=== PATIENT | female | born 1955 | race Caucasian/White ===

== ENCOUNTER 2023-03-10 20:34 | Emergency (ER) | payer OTHER, MEDICARE ==
[2023-03-10 22:54] LABS: Absolute Lymphocytes (CBC) 0.7 K/uL (0.7-4.9); Lymphocytes % 8.2 % (15.3-44.8); MCV 85.8 fL (80-100); Platelets 261 thou/uL (152-406); RBC Red Blood Cell Count 4.43 M/uL (3.86-4.86)
[2023-03-10 22:57] LABS: Protime INR 0.97
[2023-03-10 23:07] LABS: Albumin 3.8 g/dL (3.4-5.0); Bilirubin Total 0.3 mg/dL (0.2-1.0); Potassium 3.3 mEq/L (3.5-5.1)
[2023-03-11] MEDS ORDERED: NA CHLORIDE 0.9% 2,000 ML ONE (00:14)
[2023-03-11] MEDS ORDERED: PROMETHAZINE INJ 25 MG/ML AMP ONE (00:14)
[2023-03-11 01:52] LABS: Specific Gravity 1.005 (1.005-1.030); Urine Bacteria <20 /HPF (<20); Urine Bilirubin NEGATIVE (Negative); Urine Blood Negative (Negative); Urine Clarity Clear (Clear); Urine Color Colorless (Yellow); Urine Glucose NEGATIVE (Negative); Urine Protein NEGATIVE (Negative); Urine RBC <5 /HPF (None Seen); Urine Urobilinogen Normal (Normal); Urine pH 7.5 (5.0-7.0)
[2023-03-11 02:05] LABS: SARS-CoV-2 Antigen Rapid Res Positive (Negative)
--- NOTE | 2023-03-11 02:27 | ER ---
Nurse's Notes [facility] Name: Emily Villafana Age: 68 yrs Sex: Female : 1955 Arrival Date: 03/10/2023 Time: 20:34 Bed 8 Private MD: Diagnosis: SARS-associated coronavirus as the cause of diseases classified elsewhere;Weakness Presentation: 03/10 21:08 Chief complaint: Spouse and/or significant other states: she has diverticulitis , iw recently did a biopsy a few weeks ago , results aren't back , she pinched a nerve in her back last week, they put her on meds that make her nauseous, but today she started having fever, and vomiting and can't stand and weak. Coronavirus screen: Client presents with at least one sign or symptom that may indicate coronavirus-19. Ebola Screen: Patient negative for fever greater than or equal to 101.5 degrees Fahrenheit, and additional compatible Ebola Virus Disease symptoms Patient denies exposure to infectious person. Patient denies travel to an Ebola-affected area in the 21 days before illness onset. No symptoms or risks identified at this time. Risk Assessment: Do you want to hurt yourself or someone else? Patient reports no desire to harm self or others. Onset of symptoms was March 10, 2023. 21:08 Method Of Arrival: Wheelchair iw 21:08 Acuity: KODAK 3 iw 03/11 00:14 Initial Sepsis Screen: Does the patient meet any 2 criteria? No. Patient's initial kd3 sepsis screen is negative. Does the patient have a suspected source of infection? No. Patient's initial sepsis screen is negative. Historical: - Allergies: 03/10 21:09 Morphine; iw 21:09 Hydrocodone-Acetaminophen; iw 21:09 Zofran; iw 21:09 Band-Aid Plastic; iw - Home Meds: 21:09 Eliquis oral [Active]; pantoprazole oral [Active]; iw - PMHx: 21:09 MTHFR; Diverticulitis; Anemia; Hypertensive disorder; iw - PSHx: 21:09 hysterectomy; Cholecystectomy; Appendectomy; colon resection; Tonsillectomy; iw - Immunization history:: Adult Immunizations not up to date. - Social history:: Smoking status: Patient denies any tobacco usage or history of. Screenin/07 00:14 [facility] Fall Risk Assessment (Adult) History of falling in the last 3 months, kd3 including since admission No falls in past 3 months (0 pts) Confusion or Disorientation No (0 pts) Intoxicated or Sedated No (0 pts) Impaired Gait No (0 pts) Mobility Assist Device Used No (0 pt) Altered Elimination No (0 pt) Score/Fall Risk Level 0 - 2 = Low Risk Maintained a safe environment. Abuse screen: Denies threats or abuse. Denies injuries from another. Nutritional screening: No deficits noted. Tuberculosis screening: No symptoms or risk factors identified. Assessment: 00:14 General: Appears ill, Behavior is calm, cooperative. Pain: Complains of pain in low kd3 back area. Neuro: Level of Consciousness is awake, alert, obeys commands, Oriented to person, place, time, situation. 01:24 Reassessment: Pt gave verbal consent with son and at the bedside to keep son marifer (Osman Villafana) up to date on care. Osman Villafana phone number [phone]. Vital Signs: 03/10 21:08 BP 119 / 74; Pulse 88; Resp 16; Temp 100.2; Pulse Ox 95% on R/A; iw 23:18 Weight 71.21 kg; kd3 03/11 00:13 BP 119 / 70; Pulse 78; Resp 19; Pulse Ox 96% on R/A; kd3 01:48 BP 116 / 76; Pulse 84; Resp 18; Pulse Ox 95% on R/A; kd3 03:25 BP 115 / 71; Pulse 81; Resp 18; Pulse Ox 98% on R/A; kd3 ED Course: 03/10 20:36 Patient arrived in ED. am2 20:44 Jenna Easley PA-C is PHCP. sb4 20:44 Madhav Barboza MD is Attending Physician. sb4 21:09 Triage completed. iw 21:09 Arm band placed on. iw 21:19 Radiology exam delayed due to lab results not completed at this time. (BUN/Creatinine) eh4 IV insertion attempt and/or patient not having appropriate IV at this time. 22:09 Samara Winchester, RN is Primary Nurse. kd3 22:55 Ptt, Activated Sent. kd3 22:55 Protime (+inr) Sent. kd3 22:55 Lactate w/ 2H reflex if indic. Sent. kd3 22:55 CMP Sent. kd3 22:55 CBC with Diff Sent. kd3 22:55 Blood Culture Adult (2) Sent. kd3 23:38 CT Abd/Pelvis - IV Contrast Only In Process Unspecified. EDMS 03/11 00:14 Patient has correct armband on for positive identification. Provided Education on: . kd3 01:40 UAM Sent. bc6 01:40 Flu Sent. bc6 01:40 SARS RAPID Sent. bc6 03:25 No provider procedures requiring assistance completed. IV discontinued, intact, kd3 bleeding controlled, No redness/swelling at site. Pressure dressing applied. Administered Medications: 00:13 Drug: NS 0.9% IV (30 ml/kg) 30 ml/kg Route: IV; Rate: bolus; Site: left upper arm; kd3 03:24 Follow up: IV Status: Completed infusion; IV Intake: 1000ml kd3 00:13 Drug: Promethazine IVP 12.5 mg Route: IVP; Site: left upper arm; kd3 03:24 Follow up: Response: No adverse reaction; Nausea is decreased kd3 03:24 Drug: Decadron - Dexamethasone IVP 10 mg Route: IVP; Site: left upper arm; kd3 03:24 Follow up: Response: No adverse reaction kd3 Medication: 00:14 VIS not applicable for this client. kd3 Intake: 03:24 IV: 1000ml; Total: 1000ml. kd3 Outcome: 02:27 Discharge ordered by . sb4 03:25 Discharged to home via wheelchair, with family. kd3 03:25 Condition: stable 03:25 Discharge instructions given to patient, family, Instructed on discharge instructions, follow up and referral plans. Demonstrated understanding of instructions, medications. 03:26 Patient left the ED. kd3 Signatures: Dispatcher [employer] EDMS Sandrita Martinez RN RN iw Bryson, James RN RN [email or web address] Maria Ines Soliz Kyli, RN RN kd3 Gordon Mcclure 4 Jenna Easley PA-C PAChan sb4 Christine Shea bc6 Corrections: (The following items were deleted from the chart) 03/10 21:12 21:09 Home Meds: bandaids; billy cervantes
--- NOTE | 2023-03-11 02:27 | EDPHYS ---
Physician Documentation [facility] Name: Emily Villafana Age: 68 yrs Sex: Female : 1955 Arrival Date: 03/10/2023 Time: 20:34 Bed 8 Private MD: ED Physician Madhav Barboza HPI: 03/10 21:43 This 68 yrs old Female presents to ER via Wheelchair with complaints of Back Pain, sb4 Nausea/Vomiting, Decreased Appetite, dehydration. 21:54 68-year-old female with past medical history of diverticulitis and hypertension sb4 presents with complaints of weakness, vomiting, abdominal pain. Patient states that she strained her back recently and has been taking Tylenol 3 and Robaxin for the pain. The medication has caused her to vomit and now she can no longer hold anything down and is feeling incredibly weak. On top of that, she is having abdominal pain that she attributes to a diverticulitis flare. She is visiting from out of town. Historical: - Allergies: 21:09 Morphine; iw 21:09 Hydrocodone-Acetaminophen; iw 21:09 Zofran; iw 21:09 Band-Aid Plastic; iw - Home Meds: 21:09 Eliquis oral [Active]; pantoprazole oral [Active]; iw - PMHx: 21:09 MTHFR; Diverticulitis; Anemia; Hypertensive disorder; iw - PSHx: 21:09 hysterectomy; Cholecystectomy; Appendectomy; colon resection; Tonsillectomy; iw - Immunization history:: Adult Immunizations not up to date. - Social history:: Smoking status: Patient denies any tobacco usage or history of. ROS: 21:54 Eyes: Negative for injury, pain, redness, and discharge, ENT: Negative for injury, sb4 pain, and discharge, Cardiovascular: Negative for chest pain, palpitations, and edema, Respiratory: Negative for shortness of breath, cough, wheezing, and pleuritic chest pain, MS/Extremity: Negative for injury and deformity, Skin: Negative for injury, rash, and discoloration. 21:54 Constitutional: Positive for fever, poor PO intake. 21:54 Abdomen/GI: Positive for abdominal pain, nausea, vomiting, and diarrhea. 21:54 Back: Positive for pain at rest, pain with movement. 21:54 Neuro: Positive for weakness. 21:54 All other systems are negative. Exam: 21:54 Cardiovascular: Regular rate and rhythm with a normal S1 and S2. Respiratory: Lungs sb4 have equal breath sounds bilaterally, clear to auscultation and percussion. No rales, rhonchi or wheezes noted. No increased work of breathing, no retractions or nasal flaring. Skin: Warm, dry with normal turgor. Normal color with no rashes, no lesions, and no evidence of cellulitis. MS/ Extremity: Pulses equal, no cyanosis. Neurovascular intact. Full, normal range of motion. Neuro: Awake and alert, GCS 15, oriented to person, place, time, and situation. Cranial nerves II-XII grossly intact. Motor strength 5/5 in all extremities. Sensory grossly intact. Cerebellar exam normal. Normal gait. 21:54 Constitutional: The patient appears awake, lethargic, pale, uncomfortable. 21:54 Abdomen/GI: Inspection: abdomen appears normal, Bowel sounds: diminished, Palpation: mild abdominal tenderness. 22:02 ECG was reviewed by the Attending Physician. sb4 Vital Signs: 21:08 BP 119 / 74; Pulse 88; Resp 16; Temp 100.2; Pulse Ox 95% on R/A; iw 23:18 Weight 71.21 kg; kd3 07 00:13 BP 119 / 70; Pulse 78; Resp 19; Pulse Ox 96% on R/A; kd3 01:48 BP 116 / 76; Pulse 84; Resp 18; Pulse Ox 95% on R/A; kd3 03:25 BP 115 / 71; Pulse 81; Resp 18; Pulse Ox 98% on R/A; kd3 MDM: 08 20:44 Patient medically screened. sb4 21:54 Differential diagnosis: Diverticulitis, gastroenteritis, colitis, C. difficile, sb4 dehydration. 03/11 02:23 Data reviewed: vital signs, nurses notes, lab test result(s), EKG, radiologic studies, sb4 and as a result, I will discharge patient. Consideration of Admission/Observation Escalation of care including admission/observation considered. Historians other than the Patient: Spouse/Significant Other: . Daughter/Son: son. Care significantly affected by the following chronic conditions: Hypertension. Counseling: I had a detailed discussion with the patient and/or guardian regarding: the historical points, exam findings, and any diagnostic results supporting the discharge/admit diagnosis, the presence of at least one elevated blood pressure reading (>120/80) during this emergency department visit, lab results, radiology results, to return to the emergency department if symptoms worsen or persist or if there are any questions or concerns that arise at home. 03/10 21:17 Order name: Blood Culture Adult (2) sb4 03/10 21:17 Order name: CBC with Diff; Complete Time: 22:56 sb4 03/10 21:17 Order name: CMP; Complete Time: 23:16 sb4 03/10 21:17 Order name: Lactate w/ 2H reflex if indic.; Complete Time: 00:54 sb4 03/10 21:17 Order name: Protime (+inr); Complete Time: 23:02 sb4 03/10 21:17 Order name: Ptt, Activated; Complete Time: 23:02 sb4 03/11 00:31 Order name: SARS RAPID; Complete Time: 02:12 sb4 03/11 00:31 Order name: Flu; Complete Time: 02:12 sb4 03/11 00:47 Order name: UAM; Complete Time: 01:53 sb4 03/10 21:17 Order name: CT Abd/Pelvis - IV Contrast Only sb4 03/10 21:17 Order name: EKG; Complete Time: 21:17 sb4 03/10 21:17 Order name: Accucheck; Complete Time: 00:15 sb4 03/10 21:17 Order name: Cardiac monitoring; Complete Time: 21:53 sb4 03/10 21:17 Order name: EKG - Nurse/Tech; Complete Time: 21:53 sb4 03/10 21:17 Order name: IV Saline Lock - Large Bore; Complete Time: 00:01 sb4 03/10 21:17 Order name: Labs collected and sent; Complete Time: 22:55 sb4 03/10 21:17 Order name: O2 Per Protocol; Complete Time: 21:54 sb4 03/10 21:17 Order name: O2 Sat Monitoring; Complete Time: 21:54 sb4 03/10 21:17 Order name: Vital Signs; Complete Time: 21:54 sb4 EC/06 22:02 Rate is 79 beats/min. Rhythm is regular, Normal Sinus Rhythm. [place] interval is normal at sb4 152 msec. QRS interval is normal at 80 msec. QT interval is normal at 362 msec. No Q waves. T waves are Normal. No ST changes noted. Clinical impression: NSR w/ Non-specific ST/T Changes. Interpreted by me. Reviewed by me. Administered Medications: 03/11 00:13 Drug: NS 0.9% IV (30 ml/kg) 30 ml/kg Route: IV; Rate: bolus; Site: left upper arm; kd3 03:24 Follow up: IV Status: Completed infusion; IV Intake: 1000ml kd3 00:13 Drug: Promethazine IVP 12.5 mg Route: IVP; Site: left upper arm; kd3 03:24 Follow up: Response: No adverse reaction; Nausea is decreased kd3 03:24 Drug: Decadron - Dexamethasone IVP 10 mg Route: IVP; Site: left upper arm; kd3 03:24 Follow up: Response: No adverse reaction kd3 Disposition: 07:30 Co-signature as Attending Physician, Madhav Barboza MD I agree with the assessment sp4 and plan of care. I reviewed the patient's care provided by Advanced Practice Provider \T\ agree w/ the diagnosis \T\ care plan. I personally saw the pt \T\ performed a substantive portion of the visit, incldng all aspects of the (History/Exam/Medical Decision Making). Disposition Summary: 03/11/23 02:27 Discharge Ordered Location: Home sb4 Problem: new sb4 Symptoms: have improved sb4 Condition: Fair sb4 Diagnosis - SARS-associated coronavirus as the cause of diseases classified elsewhere sb4 - Weakness sb4 Followup: sb4 - With: Private Physician - When: As needed - Reason: Recheck today's complaints, Continuance of care, Re-evaluation by your physician Discharge Instructions: - Discharge Summary Sheet sb4 - Deconditioning sb4 - 10 Things You Can Do to Manage Your COVID-19 Symptoms at Home - [facility] (02/17/2021) sb4 - COVID-19: Quarantine and Isolation - [facility] (11/01/2021) sb4 - COVID-19: What to Do If You Are Sick - [facility] (10/24/2021) sb4 Forms: - Medication Reconciliation Form sb4 - Thank You Letter sb4 - Antibiotic Education sb4 - Prescription Opioid Use sb4 - Patient Portal Instructions sb4 Prescriptions: - Paxlovid 150-100 mg Oral Tablet, Dose Pack - take 1 dose pack by ORAL route as directed on dose pack take ONE 150 mg tablet sb4 of nirmatrelvir with ONE 100 mg tablet of ritonavir twice daily for 5 days; 1 Pack; Refills: 0, Product Selection Permitted - azithromycin 250 mg Oral tablet - take 1 dose pack by ORAL route as directed on dose pack For 250 mg dose pack: sb4 take 500 mg today (day 1), then 250 mg for 4 days (days 2-5); 1 Pack; Refills: 0, Product Selection Permitted - Medrol (Santosh) 4 mg Oral Tablets, Dose Pack - take 1 tablet by ORAL route as directed - follow package instructions; 1 sb4 packet; Refills: 0, Product Selection Permitted - promethazine 25 mg Oral Tablet - take 1 tablet by ORAL route every 6 hours As needed; 12 tablet; Refills: 0, sb4 Product Selection Permitted Signatures: Dispatcher [employer] Sandrita Euceda RN RN iw Doucette, Kyli, RN RN kd3 Jenna Easley PA-C PAChan sb4 Madhav Barboza MD MD sp4 Corrections: (The following items were deleted from the chart) 03/10 21:12 21:09 Home Meds: bandaids; [facility]
[2023-03-11] MEDS ORDERED: dexAMETHasone 10 MG/ML VIAL ONE (03:27)
[2023-03-11 03:33] VITALS: TEMP 100.2
[2023-03-11 03:38] VITALS: BP 115/71; O2SAT 98
--- NOTE | 2023-03-11 12:42 | RAD REPORT ---
EXAM DESCRIPTION: CT - Abdomen Pelvis W Contrast - 03/10/2023 11:36 pm CLINICAL HISTORY: Fever, vomiting, hx of diverticulitis COMPARISON: None. TECHNIQUE: CT ABDOMEN PELVIS WITH IV CONTRAST on 03/10/2023 9:17 PM CDT This exam was performed according to our departmental dose-optimization program, which includes autom ated exposure control, adjustment of the mA and/or kV according to patient size and/or use of iterati ve reconstruction technique. FINDINGS: Lower lungs are clear. Abdomen: There are small cysts within the anterior liver. There is no biliary dilatation. There is a [id number] hiatal hernia. Cholecystectomy was performed. The pancreas and spleen are normal in appearance. The adrenal glands and kidneys are unremarkable. Abdominal aorta is normal in course and caliber without aneurysm. There is no free air. There is no r etroperitoneal adenopathy. Pelvis: There is mild diverticulosis of the distal colon. Small bowel suture line is present in the a nterior right abdomen. Urinary bladder is unremarkable. There is trace free pelvic fluid. Hysterectom y was performed. Skeleton: There are no acute osseous findings. No suspicious bony lesions. IMPRESSION: Trace free pelvic fluid. Hiatal hernia. Electronically signed by: Yg Rose MD 03/10/2023 11:49 PM CDT Due to temporary technical issues with the PACS/Fluency reporting system, reports are being signed by the in house radiologist without review as a courtesy to ensure prompt reporting. The interpreting r adiologist is fully responsible for the content of the report.
--- NOTE | 2023-03-11 13:00 | EKG ---
Test Date: 2023-03-10 Test Time: 21:49:25 Pull Socket Assembler: GRACY MEASUREMENT RESULTS: Intervals: Rate: 79 MI: 152 QRSD: 80 QT: 362 QTc: 415 [place]: P: 55 MI: 152 QRS: 18 T: -1 INTERPRETIVE STATEMENTS: Normal sinus rhythm Possible Inferior infarct, age undetermined Abnormal ECG No previous ECG available for comparison Electronically Signed On 03-11-23 12:58:46 CDT by Alen Hobbs
== END 2023-03-11 03:26 | disposition home or self-care (01) ==
LOC: ER 20:34
DX: U07.1 COVID-19 (principal); M54.9 Dorsalgia, unspecified; R11.10 Vomiting, unspecified; R10.9 Unspecified abdominal pain; I10 Essential (primary) hypertension; Z79.01 Long term (current) use of anticoagulants; Z88.5 Allergy status to narcotic agent; Z88.8 Allergy status to other drugs, medicaments and biological substances; Z91.048 Other nonmedicinal substance allergy status
CPT/HCPCS: 96365; 93005; 87040 ×2; 85025; 81001; 36415; 85610; 83605; 85730; 80053; 87804 ×2; 74177; 96375; 99284; 96366; 87811; Q9967; J2550; J1100; J7030